=== PATIENT | female | born 1955 | race Caucasian/White ===

== ENCOUNTER → 2018-09-20 | Outpatient (CLI) | payer BC ==
[~2018-09-20] MED LIST: ASPIRIN E.C. 8181 MG PO; CO Q-1010 MG PO; COLACE 100100 MG/CAP PO; LIPITOR20 MG PO; PERCOCET 325 MG1 TA2 PO
== END ==
LOC: MC.RAD 09:27
DX: N63.10 Unspecified lump in the right breast, unspecified quadrant (principal)

== ENCOUNTER 2018-10-04 06:50 | Day surgery (SDC) | payer BC, OTHER ==
[~2018-10-04] VITALS: Ht 172.7 cm; Wt 74.4 kg
[2018-10-04 09:04] VITALS: BP 127/80; PULSE 93; TEMP 98.6
[2018-10-04] MEDS ORDERED: PRINIVIL20 MG PO (09:16)
[2018-10-04] MEDS ORDERED: PRIL40 PO (09:17)
[2018-10-04] MEDS ORDERED: SUTENT12.5 MG PO (09:58)
[2018-10-04 16:00] VITALS: BP 129/71; PULSE 78; TEMP 98.3
--- NOTE | 2018-10-04 16:00 | NUR ---
TO RM 7 PER CART FROM PACU. ALERT ORIENTED X3, TALKING TO STAFF, AND DAUGHTERS. DENIES PAIN OR DISCOMFORT. DENIES NAUSEA SAUREZ SET OVER 2 INCISION SITES, NO DRAINAGE AND NO REDNESS. RECEIVED CRANBERRY JUICE.
[2018-10-04 16:15] VITALS: BP 130/81; PULSE 73
--- NOTE | 2018-10-04 16:15 | NUR ---
RECEIVED KERRIEIN SITTING UP TALKING TO FAMILY
[2018-10-04] MEDS ORDERED: NORCO 325 MG-51 TAB PO (16:16)
[2018-10-04 16:30] VITALS: BP 132/66; PULSE 75
--- NOTE | 2018-10-04 16:30 | NUR ---
RECEIVED 2ND GLASS OF CRANBERRY JUICE
[2018-10-04 16:45] VITALS: BP 141/86; PULSE 80
--- NOTE | 2018-10-04 16:45 | NUR ---
AMBULATED TO BATHROOM VOIDED AND TOLERATED WELL.
[2018-10-04 16:55] VITALS: BP 112/78; PULSE 84
--- NOTE | 2018-10-04 17:00 | NUR ---
RECEIVED DISCHARGE INSTRUCTIONS AND VERBALIZED UNDERSTANDING DISCONTINUED IV AND INT- CATHETER INTACT FOLLOW UP 10/11/18 AT 0915
--- NOTE | 2018-10-04 17:15 | NUR ---
DISCHARGED PER WC BY NURSING STAFF TO PRIVATE CAR IN CARE OF -ANN.
== END 2018-10-04 17:15 | disposition home or self-care (01) ==
LOC: SDCO 06:50
DX: C50.411 Malignant neoplasm of upper-outer quadrant of right female breast (principal); Z17.1 Estrogen receptor negative status [ER-]; I10 Essential (primary) hypertension; E78.00 Pure hypercholesterolemia, unspecified; K21.9 Gastro-esophageal reflux disease without esophagitis; D44.9 Neoplasm of uncertain behavior of unspecified endocrine gland; Z85.528 Personal history of other malignant neoplasm of kidney; Z90.710 Acquired absence of both cervix and uterus; Z90.5 Acquired absence of kidney; Z80.52 Family history of malignant neoplasm of bladder; Z80.41 Family history of malignant neoplasm of ovary; Z80.42 Family history of malignant neoplasm of prostate; Z82.49 Family history of ischemic heart disease and other diseases of the circulatory system; Z80.3 Family history of malignant neoplasm of breast; Z83.3 Family history of diabetes mellitus; Z87.891 Personal history of nicotine dependence; Z92.21 Personal history of antineoplastic chemotherapy
CPT/HCPCS: A9541; J0690; J1100; J1885; J2250; J2405; J2704; J3010; J7120

== ENCOUNTER 2019-06-12 18:15 | Inpatient (IN) | payer BC, OTHER ==
[2019-06-12] VITALS (207 sets, daily range): BP systolic 115–128; BP diastolic 75–86; PULSE 78–86; TEMP 98.4; O2SAT 92–100
[~2019-06-12] VITALS: Ht 172.7 cm; Wt 72.0 kg
[~2019-06-12 18:15] MED LIST changes: +NORCO 325 MG-51 TAB PO; +PRIL40 PO; +PRINIVIL20 MG PO; +SUTENT12.5 MG PO
--- NOTE | 2019-06-12 19:30 | NUR ---
PT arrived via EMS. Settled into room, attached to CRM monitor, vital signs stable. Educated PT on POC for the evening. Call light with patient. Will continue to monitor.
[2019-06-12] MEDS ORDERED: PRINIVIL20 MG PO (20:36)
[2019-06-12] MEDS ORDERED: HCTZ 25MG TAB25 MG PO (20:36)
[2019-06-12] MEDS ORDERED: INLYTA5 MG PO (20:36)
[2019-06-12] MEDS ORDERED: COMPAZINE 110 MG/TAB PO (20:38)
[2019-06-12] MEDS ORDERED: VITAMIN B12 681 TAB PO (20:40)
[2019-06-12 22:30] LABS: C-REACTIVE PROTEIN 1.1 mg/dL (0.0-0.9); LACTATE DEHYDROGENASE 570 U/L (313-618); PHOSPHOROUS 4.5 mg/dL (2.5-4.5)
[2019-06-12 22:49] LABS: TROPONIN-I < 0.012 ng/mL (0.000-0.035)
[2019-06-12 22:56] LABS: COLLECTION METHOD CLEAN CATCH
[2019-06-12 23:01] LABS: PH 6 (5-8); SQUAMOUS EPITHELIAL 0-2 /hpf; URINE APPEARANCE Clear; URINE BACTERIA None Seen /hpf; URINE BILIRUBIN Negative (NEGATIVE); URINE BLOOD 1+ (NEGATIVE); URINE COLOR Straw; URINE GLUCOSE Negative (NEGATIVE); URINE KETONE Negative (NEGATIVE); URINE LEUKOCYTE ESTERASE Negative (NEGATIVE); URINE NITRATE Negative (NEGATIVE); URINE PROTEIN(semi-quant) Negative (NEGATIVE); URINE RBC 0-2 /hpf; URINE UROBILINOGEN Negative (NEGATIVE)
--- NOTE | 2019-06-12 23:30 | NUR ---
Report given to ARTURO Mclaughlin.
--- NOTE | 2019-06-12 23:35 | NUR ---
Bedside report received from ARTURO Ornelas
[2019-06-13] VITALS (500 sets, daily range): BP systolic 95–116; BP diastolic 69–81; PULSE 72–97; TEMP 98.1–98.5; O2SAT 78–100
--- NOTE | 2019-06-13 07:40 | NUR ---
Bedside report given to ARTURO Chavarria
--- NOTE | 2019-06-13 08:49 | NUR ---
Pt per record, took INLYTA at 0900 06/11. This will be excreted in her stool until 3pm 06/12. Double gloves and gown should be worn during handling of stool during this time for chemotherapy precautions.
--- NOTE | 2019-06-13 08:55 | NUR ---
Assessment completed, alert/oriented, denies pain or discomfort, reports "feeling better" today, vital signs stable, heart RRR/ distal pulses are palpable, lungs CTA/ no resp.difficulty noted, she is sitting up in bed eating breakfast, droplet/contact for COVID r/o, she is asymptomatic at this time, denies needs at this time, will continue to monitor
--- NOTE | 2019-06-13 08:58 | NUR ---
SW contacted the patient to discuss discharge plan. The patient lives in [place] with her , Nicanor (ph#[phone]). She reports independence with ADLs and does not have any DME. The patient's PCP is Dr. Andreina Burciaga and she receives her medications at [facility]. She reports no difficulties obtaining her meds. 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 She states that her is her DPOA-HC. The patient plans to return home with her upon discharge. The patient is pending results for COVID. SW to continue to follow as needed.
[2019-06-13 09:47] LABS: BASO % 0.8 % (0.0-2.0); EOS # 0.1 (0.0-0.7); EOS % 1.6 % (0-4.0); GRAN # 2.6 (1.4-6.5); HEMATOCRIT 40.5 % (37.0-47.0); HEMOGLOBIN 13.1 g/dl (12.5-16.0); LYMPH # 0.9 (1.2-3.4); LYMPH % 22.3 % (20.0-51.0); MEAN CELL VOLUME 89 fl (80.0-100.0); MEAN CORPUSCULAR HEMOGLOBIN 29 pg (27.0-31.0); MEAN CORPUSCULAR HGB CONC 32 g/dl (33.0-37.0); MEAN PLATELET VOLUME 10.9 fl (7.4-10.4); MONO # 0.3 (0.1-0.6); PLATELET COUNT 166 K/mm3 (130-400); RED BLOOD COUNT 4.53 M/mm3 (4.10-5.30); REDCELL DISTRIBUTION WIDTH-CV 14.2 % (11.5-14.5)
[2019-06-13 09:59] LABS: ALBUMIN 3.4 gm/dL (3.5-5.0); BILIRUBIN,TOTAL 0.5 mg/dL (0.0-1.0); CALCIUM 8.7 mg/dL (8.4-10.2); CREATININE, serum 1.02 (0.52-1.25); MAGNESIUM 2.1 mg/dL (1.6-2.3); POTASSIUM 4.2 mmol/L (3.4-5.0); TOTAL PROTEIN 6.5 gm/dL (6.4-8.2)
[2019-06-13 16:14] LABS: PROCALCITONIN 0.42 ng/mL (0.00-0.09)
--- NOTE | 2019-06-13 19:30 | NUR ---
Bedside report received from ARTURO Chavarria
--- NOTE | 2019-06-13 20:30 | NUR ---
Patient awake and talking on the phone. She is alert and oriented x4. Complaints of a mild heacahe, but denies need for medication at this time. States she may like some tylenol before bed for it. Assessment complete with no changes from previous exams. Patient moves independently in bed and in the room. Patient has no further needs at this time. Will continue to monitor. Call light within reach.
[2019-06-13 21:03] LABS: CLOSTRIDIUM DIFF A/B NEG; CLOSTRIDIUM DIFF A/B INTERP No C.diff present
[2019-06-14] VITALS: BP 98/60; PULSE 80; TEMP 98.1
[2019-06-14 04:00] VITALS: BP 96/70; PULSE 74; TEMP 97.5
--- NOTE | 2019-06-14 05:00 | NUR ---
Called and spoke with ARTURO Holland in the [facility] ED. Patients results have come back negative. Requested a faxed copy of negative results which were received and placed in the chart. Notified MIHIR Abad. Jenniffer gives order to take patient off of Droplet and Contact precautions. Patient notified of her results and she is ecstatic. Patient was provided with bathing products and wash cloths as well as a new gown. Patient will bathe on her own time as she is independent. No further needs at this time. Will continue to monitor. Call light within reach.
[2019-06-14 06:47] LABS: BASO % 0.5 % (0.0-2.0); EOS # 0.1 (0.0-0.7); EOS % 2.7 % (0-4.0); GRAN % 53.8 % (42.2-75.2); HEMATOCRIT 39.6 % (37.0-47.0); HEMOGLOBIN 12.6 g/dl (12.5-16.0); LYMPH # 1.2 (1.2-3.4); LYMPH % 31.8 % (20.0-51.0); MEAN CELL VOLUME 90 fl (80.0-100.0); MEAN CORPUSCULAR HEMOGLOBIN 29 pg (27.0-31.0); MEAN CORPUSCULAR HGB CONC 32 g/dl (33.0-37.0); MEAN PLATELET VOLUME 10.4 fl (7.4-10.4); MONO # 0.4 (0.1-0.6); MONO % 10.9 % (1.7-9.3); PLATELET COUNT 144 K/mm3 (130-400); RED BLOOD COUNT 4.41 M/mm3 (4.10-5.30); REDCELL DISTRIBUTION WIDTH-CV 14.4 % (11.5-14.5)
[2019-06-14 06:50] LABS: ALBUMIN 3.3 gm/dL (3.5-5.0); BILIRUBIN,TOTAL 0.4 mg/dL (0.0-1.0); CALCIUM 8.7 mg/dL (8.4-10.2); CREATININE, serum 1.01 (0.52-1.25); POTASSIUM 4.3 mmol/L (3.4-5.0); TOTAL PROTEIN 6.3 gm/dL (6.4-8.2)
--- NOTE | 2019-06-14 07:27 | NUR ---
Bedside report given to ARTURO Pickett
--- NOTE | 2019-06-14 07:36 | NUR ---
REPORT FROM ROBERT MORRIS.
[2019-06-14 08:00] VITALS: BP 115/76; PULSE 78; TEMP 98.1
--- NOTE | 2019-06-14 10:11 | NUR ---
PT HAS NEGATIVE COVID RESULT WILL TRANSFER TO FLOOR AFTER TESTS COMPLETE.
[2019-06-14 12:00] VITALS: BP 129/83; PULSE 82; TEMP 98.1
--- NOTE | 2019-06-14 13:02 | NUR ---
PT TAUGHT REGARDING LEXISCAN. PT TO BE NPO AT MIDNIGHT. RESTING PICTURES TODAY AND ROLAN INJECTION 06/15/19. PT VERBALIZED UNDERSTANDING OF ABOVE
[2019-06-14 16:00] VITALS: BP 98/57; PULSE 86; TEMP 98.2
--- NOTE | 2019-06-14 18:18 | NUR ---
report to Bigg MORRIS transfered to Medical floor.
--- NOTE | 2019-06-14 19:21 | NUR ---
report to lidia garrido.
--- NOTE | 2019-06-14 21:30 | NUR ---
Pt arrived to medical unit room 311 via wc. Alert and oriented x4. Denies any pain or discomfort at this time. Pt showered at this time, portacath to rt upper chest covered prior to shower. Port flushed, dressinf CDI, connected to fluids. Tele monitor in place. Needs met at this time. Call light within reach.
[2019-06-14 22:08] VITALS: BP 104/69; PULSE 84; TEMP 98.2
[2019-06-15] VITALS (8 sets, daily range): BP systolic 111–125; BP diastolic 64–72; PULSE 78–111; TEMP 98.1
--- NOTE | 2019-06-15 05:39 | NUR ---
pt made no complaints during this shift. Meds administered. Needs met. call light within reach. Remained NPO since midnight.
--- NOTE | 2019-06-15 07:20 | NUR ---
Report given to ARTURO Mcdaniels.
--- NOTE | 2019-06-15 07:39 | NUR ---
Patient sitting up in bed. A&Ox3. Denies pain and discomfort. Port left upper chest CDi, fluids infusing. VSS. Patient NPO for procedure. No further needs expressed from patient. Call light within reach
--- NOTE | 2019-06-15 10:35 | NUR ---
SW attended clinical rounds with the team. The patient may tentatively discharge today. After rounds SW met with the patient to revisit the discharge plan. The patient plans to return home and has no needs or concerns at this time.
[2019-06-15] MEDS ORDERED: LEVAQUIN 750MG750 M1 PO (12:04)
--- NOTE | 2019-06-15 12:44 | NUR ---
Port deaccessed left upper chest. Needle intact. Patient tolerated well bandaid applied. Patient waiting on ride to come pick her up. Discharge paperwork reviewed with patient. Patient verbalized an understanding of following doctors orders. Personal belongings with patient. No further needs expressed from patient. Call light within reach
--- NOTE | 2019-06-15 13:23 | NUR ---
Patient taken by wheelchair to vehicle by nursing staff. Discharge paperwork and personal belongings with patient. No further needs expressed from patient.
== END 2019-06-15 13:23 | disposition home or self-care (01) | DRG 864 ==
LOC: ICU 18:15 → EU 19:30 → MEDICAL 06-14 21:13
PROVIDERS: Nurse Practitioner Family; ADMIT Internal Medicine
DX: R50.9 Fever, unspecified (principal); R65.10 Systemic inflammatory response syndrome (SIRS) of non-infectious origin without acute organ dysfunction; R00.1 Bradycardia, unspecified; R19.7 Diarrhea, unspecified; I95.9 Hypotension, unspecified; R74.0 Nonspecific elevation of levels of transaminase and lactic acid dehydrogenase [LDH]; Z20.828 Contact with and (suspected) exposure to other viral communicable diseases; I10 Essential (primary) hypertension; Z85.3 Personal history of malignant neoplasm of breast; Z85.53 Personal history of malignant neoplasm of renal pelvis
CPT/HCPCS: 99223-AI; 99232-AI; 99233-AI; 99239; A9500; J0692; J1650; J2405; J2785; J7030; J7040

== ENCOUNTER → 2019-09-20 | Outpatient (CLI) | payer BC, OTHER ==
[~2019-09-20] MED LIST changes: +COMPAZINE 110 MG/TAB PO; +HCTZ 25MG TAB25 MG PO; +INLYTA5 MG PO; +LEVAQUIN 750MG750 M1 PO; +VITAMIN B12 681 TAB PO
== END ==
LOC: MC.RAD 12:50
DX: Z12.31 Encounter for screening mammogram for malignant neoplasm of breast (principal); Z98.890 Other specified postprocedural states; Z92.3 Personal history of irradiation; Z95.9 Presence of cardiac and vascular implant and graft, unspecified; Z85.3 Personal history of malignant neoplasm of breast

== ENCOUNTER → 2019-11-30 | Outpatient (CLI) | payer BC, OTHER | LOC: COL.RAD 13:26 | DX: C50.411 Malignant neoplasm of upper-outer quadrant of right female breast (principal); E04.1 Nontoxic single thyroid nodule ==

== ENCOUNTER → 2019-12-06 | Outpatient (CLI) | payer BC, OTHER ==
[~2019-12-06] VITALS: Ht 172.7 cm; Wt 77.0 kg
[2019-12-06 08:05] VITALS: BP 154/107; PULSE 87
[2019-12-06 09:35] VITALS: BP 177/107; PULSE 77
== END ==
LOC: COL.RAD 07:46
DX: E04.1 Nontoxic single thyroid nodule (principal)

== ENCOUNTER 2020-12-29 08:37 | Observation (INO) | payer BC, OTHER ==
[~2020-12-29] VITALS: Ht 172.7 cm; Wt 64.0 kg
[2020-12-29 09:32] LABS: COLLECTION METHOD CLEAN CATCH
[2020-12-29 09:35] LABS: BASO % 0.3 % (0.0-2.0); GRAN % 87.6 % (42.2-75.2); HEMATOCRIT 42.7 % (37.0-47.0); HEMOGLOBIN 14.1 g/dl (12.5-16.0); LYMPH # 0.9 K/mm3 (1.2-3.4); LYMPH % 6.2 % (20.0-51.0); MEAN CELL VOLUME 90 fl (80.0-100.0); MEAN CORPUSCULAR HEMOGLOBIN 30 pg (27.0-31.0); MEAN CORPUSCULAR HGB CONC 33 g/dl (33.0-37.0); MEAN PLATELET VOLUME 9.6 fl (7.4-10.4); MONO # 0.8 K/mm3 (0.1-0.6); MONO % 5.6 % (1.7-9.3); PLATELET COUNT 256 K/mm3 (130-400); RED BLOOD COUNT 4.75 M/mm3 (4.10-5.30); REDCELL DISTRIBUTION WIDTH-CV 12.9 % (11.5-14.5)
[2020-12-29 09:41] LABS: MUCOUS Present /lpf; PH 7 (5-8); SQUAMOUS EPITHELIAL 0-2 /hpf; URINE APPEARANCE Clear; URINE BACTERIA None Seen /hpf; URINE BILIRUBIN Negative (NEGATIVE); URINE BLOOD Negative (NEGATIVE); URINE COLOR Yellow; URINE GLUCOSE Negative (NEGATIVE); URINE KETONE Negative (NEGATIVE); URINE LEUKOCYTE ESTERASE Negative (NEGATIVE); URINE NITRATE Negative (NEGATIVE); URINE PROTEIN(semi-quant) 1+ (NEGATIVE); URINE RBC 0-2 /hpf
[2020-12-29 09:57] LABS: ALBUMIN 4.1 gm/dL (3.4-4.8); BILIRUBIN,TOTAL 0.9 mg/dL (0.2-1.2); C-REACTIVE PROTEIN 0.66 mg/dL (0.00-0.50); CALCIUM 9.9 mg/dL (8.4-10.2); CREATININE, serum 0.92 mg/dL (0.57-1.11); POTASSIUM 4.3 mmol/L (3.5-4.5); TOTAL PROTEIN 7.7 gm/dL (6.2-8.1)
[2020-12-29] MEDS ORDERED: NORCO 325 MG-7.1 TAB PO (10:31)
[2020-12-29] MEDS ORDERED: ZOFRAN ODT4 MG PO (10:32)
[2020-12-29 12:00] VITALS: BP 132/78; PULSE 72; TEMP 98.1
[2020-12-29 15:51] VITALS: BP 132/78; PULSE 72; TEMP 98.1
[2020-12-29 16:00] VITALS: BP 140/76; PULSE 80; TEMP 98.7
[2020-12-29 19:43] VITALS: BP 155/86; PULSE 78; TEMP 98.5
--- NOTE | 2020-12-29 20:00 | NUR ---
PT IN BED. IS ALERT AND ORIENTED X4. HAS IVF INFUSING TO LEFT PORT WITHOUT PROBLEM. ABD SOFT, ACTIVE BS. DENIES NEED FOR PAIN MEDS, NO NAUSEA AT THIS TIME.
[2020-12-30] VITALS (11 sets, daily range): BP systolic 115–163; BP diastolic 58–95; PULSE 71–91; TEMP 97.5–99
--- NOTE | 2020-12-30 | NUR ---
PT IS NPO FOR ABDOMINAL US TODAY.
--- NOTE | 2020-12-30 05:00 | NUR ---
LABS DRAWN FROM LEFT PORT. PT UP INDEPENDENTLY IN ROOM.
[2020-12-30 06:33] LABS: BASO % 0.5 % (0.0-2.0); EOS # 0.1 K/mm3 (0.0-0.7); GRAN # 3.6 K/mm3 (1.4-6.5); GRAN % 62.1 % (42.2-75.2); HEMATOCRIT 39.5 % (37.0-47.0); HEMOGLOBIN 12.7 g/dl (12.5-16.0); LYMPH # 1.6 K/mm3 (1.2-3.4); LYMPH % 27.8 % (20.0-51.0); MEAN CORPUSCULAR HEMOGLOBIN 30 pg (27.0-31.0); MEAN CORPUSCULAR HGB CONC 32 g/dl (33.0-37.0); MEAN PLATELET VOLUME 10.4 fl (7.4-10.4); MONO # 0.5 K/mm3 (0.1-0.6); MONO % 8.4 % (1.7-9.3); PLATELET COUNT 211 K/mm3 (130-400); RED BLOOD COUNT 4.18 M/mm3 (4.10-5.30); REDCELL DISTRIBUTION WIDTH-CV 13.3 % (11.5-14.5)
[2020-12-30 06:34] LABS: MEAN CELL VOLUME 95 fl (80.0-100.0)
[2020-12-30 06:57] LABS: ALBUMIN 3.1 gm/dL (3.4-4.8); BILIRUBIN,TOTAL 0.9 mg/dL (0.2-1.2); CALCIUM 9.1 mg/dL (8.4-10.2); CREATININE, serum 0.93 mg/dL (0.57-1.11); POTASSIUM 4.3 mmol/L (3.5-4.5)
--- NOTE | 2020-12-30 08:00 | NUR ---
PT IS ALERT AND ORIENTED THIS AM. SHE IS NPO FOR ABDOMIAL ULTRASOUND LATER THIS AM. SHE DOES NOT COMPLAIN OF PAIN OR N/V. SHIFT ASSESSMENT COMPLETE AND MEDICATIONS HELD DUE TO NPO STATUS. PT DOES NOT STATE SHE NEEDS ANYTHING ELSE AT THIS TIME. CALL LIGHT WITHIN REACH.
--- NOTE | 2020-12-30 10:07 | NUR ---
EFRAIN met with the patient to discuss discharge plan. The patient lives in [place] with her , Nicanor (ph#[phone]). She reports independence with ADLs and does not have any DME. The patient's PCP is Dr. Andreina Burciaga and she receives her medications from [facility] in [place]. She reports no difficulties obtaining her meds. The patient does not have a DPOA-HC and she was not interested in completing one at this time. The patient plans to return home with her upon discharge. No additional needs at this time. *Discharge plan: home with *
--- NOTE | 2020-12-30 10:56 | NUR ---
PT OFF THE FLOOR FOR SURGERY.
[2020-12-30] MEDS ORDERED: NORCO 325 MG-51 TAB PO (12:27)
--- NOTE | 2020-12-30 13:01 | NUR ---
PT ARRIVED BACK TO FLOOR. POST OP ASSESSMENT COMPLETE. LAP SITES WELL APPROXIMAED. PT SITTING UP IN BED TALKING TO AND NURSE. NO REPORTS OF PAIN OR N/V.
--- NOTE | 2020-12-30 16:32 | NUR ---
PATIENT MEET DISCHARGE CRITERIA. GAVE DISCHARGE INSTRUCTIONS, E-SCRIPT SENT, AND DISCUSSED F/U APT. ANSWERED QUESTIONS/CONCERNS. DC-ACCESSED PORTACATH AND FLUSHED WITH HEPARIN, BANDAID INPLACE. PATIENT IS DRESSED, PACKED, AND DISCHARGED VIA AMBULATORY TO PERSONAL VEHCILE WITH .
== END 2020-12-30 16:35 | disposition home or self-care (01) ==
LOC: COL.ER 08:37 → SURG 10:24
PROVIDERS: Family Medicine; ADMIT Surgery
DX: K80.00 Calculus of gallbladder with acute cholecystitis without obstruction (principal); K44.9 Diaphragmatic hernia without obstruction or gangrene; K21.9 Gastro-esophageal reflux disease without esophagitis; Z79.899 Other long term (current) drug therapy; Z87.891 Personal history of nicotine dependence; Z85.3 Personal history of malignant neoplasm of breast; Z85.528 Personal history of other malignant neoplasm of kidney; Z92.21 Personal history of antineoplastic chemotherapy; Z79.891 Long term (current) use of opiate analgesic
CPT/HCPCS: G0378; J1956; J2543; J3480; J7030; J7120